=== PATIENT | male | born 1950 | race Two or more races ===

== ENCOUNTER 2024-09-15 08:20 | Outpatient (RCR) | payer MEDICARE, SELFPAY ==
--- NOTE | 2024-09-15 08:53 | CTCFLWUP_ITS ---
[facility] [address] [place], [place] [address] FOLLOW-UP NOTE Date: 09/15/2024 MR#: [id number] Name: DANYELLE HENSLEY : 1950 Dx: C90.00 Multiple myeloma not having achieved remission Identification. Patient with history multiple myeloma 2008 status post stem cell transplant October. Had been on maintenance Revlimid after bone marrow transplant and continued for about 5 years and sto pped on his own. PET scan 01/06/2024 showed multiple lytic lesions. Had palliative radiation therapy to lower T-spine and left hip. Bone marrow biopsy 05/06/2024 was suboptimal study. Patient states that he wants to see the bone marrow specialist Dr. Curry at [facility] about further man agement. I renewed his pain medications and checked the cures website. Electronically signed by: John Estrada M.D. 09/15/2024 8:51 AM
== END 2024-09-24 23:59 | disposition home or self-care (01) ==
LOC: SCTC 08:20
PROVIDERS: PCP Family Medicine; Referring Provider Family Medicine; Visit Provider Radiology Therapeutic Radiology
DX: C90.00 Multiple myeloma not having achieved remission (principal); Z94.84 Stem cells transplant status
CPT/HCPCS: 99213; G0463

== ENCOUNTER 2024-12-14 08:24 | Outpatient (RCR) | payer MEDICARE, SELFPAY ==
--- NOTE | 2024-12-14 09:23 | CTCFLWUP_ITS ---
[facility] [address] [place], [place] [address] FOLLOW-UP NOTE Date: 12/14/2024 MR#: [id number] Name: DANYELLE HENSLEY : 1950 Dx: C90.00 Multiple myeloma not having achieved remission Identification. Patient with history of multiple myeloma 2008 status post stem cell transplant October 2010 [facility] Admitted on maintenance Revlimid after bone marrow transplant continue for 5 years and stopped on his own. PET scan 01/06/2024 showed multiple lytic lesions. Had palliative radiation therapy to the lower T-spine and left hip. Bone marrow biopsy 05/06/2024 was suboptimal study. Patient states that he wanted relocation services specialist Dr. Jes Stevens about further management. Patient currently on hydrocodone 10 every 6 and Ativan 0.5 mg 1-2 nightly as needed insomnia. States that pain in his low back and left hip is generally improved. Has canceled plan to see his bone marrow specialist Dr. Curry. Also cancelled visit with local heme oncologist. Does not wish any more tests being done but does agree to have standard labs done before next visit. I will have this ordered before next visit in 3 months. Electronically signed by: John Estrada M.D. 12/14/2024 9:21 AM
== END 2024-12-22 23:59 | disposition home or self-care (01) ==
LOC: SCTC 08:24
PROVIDERS: PCP Family Medicine; Referring Provider Family Medicine; Visit Provider Radiology Therapeutic Radiology
DX: Z08 Encounter for follow-up examination after completed treatment for malignant neoplasm (principal); Z85.79 Personal history of other malignant neoplasms of lymphoid, hematopoietic and related tissues; Z94.84 Stem cells transplant status; Z92.3 Personal history of irradiation
CPT/HCPCS: 99213; G0463

== ENCOUNTER → 2025-03-09 | Outpatient (CLI) | payer MEDICARE, MEDICAID, SELFPAY ==
[2025-03-09 08:40] LABS: Basophils # (Auto) 0.0 Thou/mm3 (0.0-0.2); Basophils % (Auto) 1 % (0-2.5); Eosinophils # (Auto) 0.1 Thou/mm3 (0.0-0.5); Eosinophils % (Auto) 2 % (0-10); Hematocrit 43.8 % (41.0-53.0); Hemoglobin 15.3 g/dL (13.5-16.0); Immature Granulocytes Auto 0.01 Thou/mm3 (0.00-0.00); Lymphocytes # (Auto) 1.1 Thou/mm3 (1.0-4.8); Lymphocytes % (Auto) 22 % (10-50); Mean Corpuscular HGB Conc 34.9 g/dl (31.0-37.0); Mean Corpuscular Hemoglobin 34.1 pg (25.0-35.0); Mean Corpuscular Volume 98 fL (80-100); Monocytes # (Auto) 0.4 Thou/mm3 (0.0-0.8); Monocytes % (Auto) 8 % (0-12); Neutrophils # (Auto) 3.4 Thou/mm3 (1.8-7.7); Neutrophils % (Auto) 67 % (37-80); Nucleated Red Blood Cell # 0.00 Thou/mm3 (0.00-0.00); Nucleated Red Blood Cell % 0 /100 WBC (0); Platelet Count 137 Thou/mm3 (140-440); RDW Standard Deviation 46.1 fL (35.1-43.9); Red Blood Count 4.49 Miln/mm3 (4.50-5.90); White Blood Count 5.0 Thou/mm3 (3.8-10.6)
[2025-03-09 09:09] LABS: Alanine Aminotransferase 10 U/L (10-49); Albumin, Serum 4.1 gm/dL (3.4-4.8); Albumin/Globulin Ratio 2.0 (1.2-2.2); Alkaline Phosphatase 84 U/L (46-116); Anion Gap 6 (7-16); Aspartate Amino Transferase 15 U/L (0-34); BUN/Creatinine Ratio 7 Ratio (12-20); Bilirubin,Total 1.4 mg/dL (0.3-1.2); Blood Urea Nitrogen 11 mg/dL (9-23); Calcium 9.2 mg/dL (8.3-10.6); Calcium (Corrected) 9.2 mg/dL (8.5-10.1); Carbon Dioxide 29.0 mMol/L (20.0-31.0); Chloride 109 mMol/L (98-107); Creatinine (Component) 1.5 mg/dL (0.6-1.3); Globulin 2.1 gm/dL (2.3-3.5); Glucose 126 mg/dL (74-106); Osmolality,Calculated 288 (275-295); Potassium 4.4 mMol/L (3.4-5.1); Sodium 144 mMol/L (136-145); Total Protein 6.2 gm/dL (5.7-8.2); eGFR 49 See Note
== END | disposition home or self-care (01) ==
LOC: SCTO 06:50
PROVIDERS: PCP Family Medicine; Referring Provider Radiology Therapeutic Radiology; Visit Provider Radiology Therapeutic Radiology
DX: C90.00 Multiple myeloma not having achieved remission (principal)
CPT/HCPCS: 36415; 80053; 85025

== ENCOUNTER 2025-03-14 09:06 | Outpatient (RCR) | payer MEDICARE, MEDICAID, SELFPAY ==
--- NOTE | 2025-03-14 10:01 | CTCFLWUP_ITS ---
[facility] [address] [place], [place] [address] FOLLOW-UP NOTE Date: 03/14/2025 MR#: [id number] Name: DANYELLE HENSLEY : 1950 Dx: C90.00 Multiple myeloma not having achieved remission Identification. Patient with history of multiple myeloma 2008 status post stem cell transplant October 2010 [facility]. Maintenance Revlimid after bone marrow transplant continued for 5 years and stopped on his own PET scan 01/06/2024 showed multiple lytic lesions. Had prior palliative radiotherapy to lower T-spine and left hip. Bone marrow biopsy 05/06/2024 suboptimal study. Most recent labs 03/09/2025 WBC 5.0 hemoglobin 15.3 platelet count 1 37,000 BUN 11 creatinine 1.5 EGFR 49 Pain today in back and pelvis area approximately same as before and relieved with [place] 10 every 6 as needed. Assessment #1 multiple myeloma diagnosis 2009 stem cell transplant October 2010 [facility]. #2. Maintenance Revlimid continue to 5 years stopped on his own. #3. prior palliative radiation therapy to lower T-spine left hip. PET scan 01/06/2024 shows multiple lytic lesions. #4. bone marrow biopsy 05/06/2024 suboptimal study. Reluctant to have additional studies done. #5. Pain moderate alleviated with [place] 10 every 6 as needed. Most recent CBC CMP no significant change from prior. #6. I urged patient to see rehab aide Dr. Francis. I will see him back in 3 months for pain management. Electronically signed by: John Estrada M.D. 03/14/2025 9:58 AM
== END 2025-03-24 23:59 | disposition home or self-care (01) ==
LOC: SCTC 09:06
PROVIDERS: PCP Family Medicine; Referring Provider Radiology Therapeutic Radiology; Visit Provider Radiology Therapeutic Radiology
DX: C90.00 Multiple myeloma not having achieved remission (principal); Z94.84 Stem cells transplant status; Z92.3 Personal history of irradiation
CPT/HCPCS: 99213; G0463

== ENCOUNTER → 2025-05-11 | Outpatient (CLI) | payer MEDICARE, MEDICAID, SELFPAY ==
[2025-05-11 11:11] LABS: Basophils # (Auto) 0.0 Thou/mm3 (0.0-0.2); Eosinophils # (Auto) 0.0 Thou/mm3 (0.0-0.5); Lymphocytes % (Auto) 19 % (10-50); Monocytes # (Auto) 0.4 Thou/mm3 (0.0-0.8); Monocytes % (Auto) 7 % (0-12); Nucleated Red Blood Cell # 0.00 Thou/mm3 (0.00-0.00); Nucleated Red Blood Cell % 0 /100 WBC (0)
[2025-05-11 11:14] LABS: Basophils % (Auto) 0 % (0-2.5); Eosinophils % (Auto) 1 % (0-10); Hematocrit 44.7 % (41.0-53.0); Hemoglobin 15.5 g/dL (13.5-16.0); Immature Granulocytes Auto 0.01 Thou/mm3 (0.00-0.00); Lymphocytes # (Auto) 1.1 Thou/mm3 (1.0-4.8); Mean Corpuscular HGB Conc 34.7 g/dl (31.0-37.0); Mean Corpuscular Hemoglobin 33.7 pg (25.0-35.0); Mean Corpuscular Volume 97 fL (80-100); Neutrophils # (Auto) 4.0 Thou/mm3 (1.8-7.7); Neutrophils % (Auto) 72 % (37-80); Platelet Count 141 Thou/mm3 (140-440); RDW Standard Deviation 48.0 fL (35.1-43.9); Red Blood Count 4.60 Miln/mm3 (4.50-5.90); White Blood Count 5.6 Thou/mm3 (3.8-10.6)
[2025-05-11 11:42] LABS: Alanine Aminotransferase 8 U/L (10-49); Albumin, Serum 4.1 gm/dL (3.4-4.8); Albumin/Globulin Ratio 2.1 (1.2-2.2); Alkaline Phosphatase 83 U/L (46-116); Anion Gap 6 (7-16); Aspartate Amino Transferase 13 U/L (0-34); BUN/Creatinine Ratio 6 Ratio (12-20); Bilirubin,Total 1.5 mg/dL (0.3-1.2); Blood Urea Nitrogen 9 mg/dL (9-23); Calcium 10.0 mg/dL (8.3-10.6); Calcium (Corrected) 10.0 mg/dL (8.5-10.1); Carbon Dioxide 28.8 mMol/L (20.0-31.0); Chloride 108 mMol/L (98-107); Creatinine (Component) 1.4 mg/dL (0.6-1.3); Globulin 2.0 gm/dL (2.3-3.5); Glucose 103 mg/dL (74-106); Osmolality,Calculated 283 (275-295); Potassium 4.7 mMol/L (3.4-5.1); Sodium 143 mMol/L (136-145); Total Protein 6.1 gm/dL (5.7-8.2); eGFR 53 See Note
== END | disposition home or self-care (01) ==
PROVIDERS: PCP Family Medicine; Referring Provider Radiology Therapeutic Radiology; Visit Provider Radiology Therapeutic Radiology
DX: C90.00 Multiple myeloma not having achieved remission (principal)
CPT/HCPCS: 36415; 80053; 85025

== ENCOUNTER 2025-05-16 11:24 | Outpatient (RCR) | payer MEDICARE, MEDICAID, SELFPAY ==
[2025-05-19 22:05] LABS: Albumin 3.9 g/dL (3.8-4.8); Alpha-1-Globulin 0.2 g/dL (0.2-0.3); Alpha-2-Globulin 0.6 g/dL (0.5-0.9); Beta-1-Globulin 0.4 g/dL (0.4-0.6); Beta-2-globulin 0.2 g/dL (0.2-0.5); Gamma Globulin 0.7 g/dL (0.8-1.7)
[2025-05-20 06:35] LABS: Protein, total, serum 6.0 g/dL (6.1-8.1)
[2025-05-20 19:51] LABS: Immunoglobulin A 78 mg/dL (70-320); Immunoglobulin G 760 mg/dL (600-1540); Kappa Light Chain, Free 24.8 mg/L (3.3-19.4); Lambda Light Chain, Free 23.8 mg/L (5.7-26.3)
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
[2025-05-23 07:11] LABS: Beta 2 Microglobulin 2.68 mg/L (< OR = 2.51); Immunoglobulin M 53 mg/dL (50-300); Kappa/Lambda, Free Ratio 1.04 (0.26-1.65)
== END 2025-05-24 23:59 | disposition home or self-care (01) ==
LOC: SCTC 11:24
PROVIDERS: PCP Internal Medicine; Referring Provider Internal Medicine; Visit Provider Internal Medicine Hematology & Oncology
DX: Z08 Encounter for follow-up examination after completed treatment for malignant neoplasm (principal); Z85.79 Personal history of other malignant neoplasms of lymphoid, hematopoietic and related tissues; Z94.81 Bone marrow transplant status; R53.83 Other fatigue; Z92.3 Personal history of irradiation
CPT/HCPCS: 82232; 82784; 83521; 84155; 84165; 86334; 99212; G0463

== ENCOUNTER 2025-06-15 08:24 | Outpatient (RCR) | payer MEDICARE, MEDICAID, SELFPAY ==
--- NOTE | 2025-06-15 09:03 | CTCFLWUP_ITS ---
[facility] [address] [place], [place] [address] FOLLOW-UP NOTE Date: 06/15/2025 MR#: [id number] Name: DANYELLE HENSLEY : 1950 Dx: C90.00 Multiple myeloma not having achieved remission Identify. Patient with history of multiple myeloma 2008 status post stem cell transplant October 2010 [facility]. Received radiation therapy T-spine 2020 2023 and left hip 2021 Most recent PET 01/06/2024 suggested widespread osteolytic lesions. Had most recent bone marrow 05/06/2024 inconclusive, new labs ordered 05/16/[address] 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 Additional tests recommended. States that he has been having some trouble sleeping and would like to take occasional Ativan. Also dealing with constipation issues. Assessment. 1. History of multiple myeloma status post stem cell transplant 2010. 2. Suspected malignancy recurrence with PET 01/06/2024 showing multiple lesions with symptoms. Prior XRT to T-spine left hip. With improvement of symptoms. 3. Had spotty follow-up with heme-onc initially followed at [facility] then no longer wishing to go back due to COVID and other reasons. Currently being followed by Dr. Francis/Hailey Momin. [facility]. Recent bone marrow biopsy inconclusive other tests pending. 4. Seeing patient for pain management and I renewed his hydrocodone. Occasional trouble sleeping and I renewed his Ativan that he is taking occasionally. Told him about the concern I had about the combined effect of benzodiazepine and opioid. He has demonstrated responsible med taking previously. [facility] website checked. 5. I will see him in 3 months for pain management palliative care. Cc: Eileen Mitchell MD Electronically signed by: John Estrada M.D. 06/15/2025 9:00 AM
== END 2025-06-24 23:59 | disposition home or self-care (01) ==
LOC: SCTC 08:24
PROVIDERS: PCP Internal Medicine; Referring Provider Internal Medicine; Visit Provider Radiology Therapeutic Radiology
DX: C90.00 Multiple myeloma not having achieved remission (principal); Z94.84 Stem cells transplant status; Z92.3 Personal history of irradiation
CPT/HCPCS: 99213; G0463

== ENCOUNTER → 2025-07-26 | Outpatient (CLI) | payer MEDICARE, MEDICAID, SELFPAY ==
[2025-07-26 08:49] LABS: Flow Cytometry* See Sep Rpt
[2025-07-26 10:09] LABS: Basophils # (Auto) 0.0 Thou/mm3 (0.0-0.2); Basophils % (Auto) 0 % (0-2.5); Eosinophils # (Auto) 0.1 Thou/mm3 (0.0-0.5); Eosinophils % (Auto) 1 % (0-10); Hematocrit 45.5 % (41.0-53.0); Hemoglobin 15.7 g/dL (13.5-16.0); Immature Granulocytes Auto 0.01 Thou/mm3 (0.00-0.00); Lymphocytes # (Auto) 1.1 Thou/mm3 (1.0-4.8); Lymphocytes % (Auto) 21 % (10-50); Mean Corpuscular HGB Conc 34.5 g/dl (31.0-37.0); Mean Corpuscular Hemoglobin 34.1 pg (25.0-35.0); Mean Corpuscular Volume 99 fL (80-100); Monocytes # (Auto) 0.4 Thou/mm3 (0.0-0.8); Monocytes % (Auto) 7 % (0-12); Neutrophils # (Auto) 3.7 Thou/mm3 (1.8-7.7); Neutrophils % (Auto) 71 % (37-80); Nucleated Red Blood Cell # 0.00 Thou/mm3 (0.00-0.00); Nucleated Red Blood Cell % 0 /100 WBC (0); Platelet Count 134 Thou/mm3 (140-440); RDW Standard Deviation 47.8 fL (35.1-43.9); Red Blood Count 4.60 Miln/mm3 (4.50-5.90); White Blood Count 5.3 Thou/mm3 (3.8-10.6)
[2025-07-26 12:54] LABS: Alanine Aminotransferase 10 U/L (10-49); Albumin, Serum 4.7 gm/dL (3.4-4.8); Albumin/Globulin Ratio 2.4 (1.2-2.2); Alkaline Phosphatase 79 U/L (46-116); Anion Gap 11 (7-16); Aspartate Amino Transferase 16 U/L (0-34); BUN/Creatinine Ratio 7 Ratio (12-20); Bilirubin,Total 1.7 mg/dL (0.3-1.2); Blood Urea Nitrogen 10 mg/dL (9-23); Calcium 9.2 mg/dL (8.3-10.6); Calcium (Corrected) 9.2 mg/dL (8.5-10.1); Carbon Dioxide 27.1 mMol/L (20.0-31.0); Chloride 106 mMol/L (98-107); Creatinine (Component) 1.4 mg/dL (0.6-1.3); Globulin 2.0 gm/dL (2.3-3.5); Glucose 103 mg/dL (74-106); Osmolality,Calculated 285 (275-295); Potassium 3.4 mMol/L (3.4-5.1); Sodium 144 mMol/L (136-145); Total Protein 6.7 gm/dL (5.7-8.2); eGFR 53 See Note
[2025-08-02 08:48] LABS: Albumin 4.2 g/dL (3.8-4.8); Alpha-1-Globulin 0.2 g/dL (0.2-0.3); Alpha-2-Globulin 0.5 g/dL (0.5-0.9); Beta-1-Globulin 0.4 g/dL (0.4-0.6); Beta-2-globulin 0.2 g/dL (0.2-0.5); Gamma Globulin 0.7 g/dL (0.8-1.7); Immunoglobulin A 79 mg/dL (70-320); Immunoglobulin G 776 mg/dL (600-1540); Kappa Light Chain, Free 24.3 mg/L (3.3-19.4); Lambda Light Chain, Free 24.1 mg/L (5.7-26.3)
[2025-08-03 06:29] LABS: Beta 2 Microglobulin 2.66 mg/L (< OR = 2.51); Immunoglobulin M 60 mg/dL (50-300); Kappa/Lambda, Free Ratio 1.01 (0.26-1.65); Protein, total, serum 6.2 g/dL (6.1-8.1)
== END | disposition home or self-care (01) ==
LOC: SCTO 08:24
PROVIDERS: PCP Family Medicine; Referring Provider Internal Medicine Hematology & Oncology; Visit Provider Internal Medicine Hematology & Oncology
DX: C90.00 Multiple myeloma not having achieved remission (principal)
CPT/HCPCS: 36415; 80053; 82232; 82570; 82784; 83521; 84155; 84156; 84165; 84166; 85025; 85810; 86334; 86335

== ENCOUNTER → 2025-07-29 | Outpatient (CLI) | payer MEDICARE, MEDICAID, SELFPAY ==
[2025-07-29 11:25] LABS: Protein Total, Urine Volume 1100 mL/24hr (600-1800)
[2025-07-29 11:35] LABS: Protein Total, 24 hr Urine 286 mg/24hr (<149); Protein Total, Urine 26 mg/dL (1-14)
[2025-08-02 23:34] LABS: Albumin, 24-Hour Urine 100 %; Alpha 1 Globulin, 24Hr Urine 0 %; Alpha 2 Globulin, 24Hr Urine 0 %; Beta Globulins, 24Hr Urine 0 %; Gamma Globulins, 24Hr Urine 0 %; Protein/Creatinine Ratio 146 mg/g creat (<100); Total Volume 1100 mL
[2025-08-02 23:34] LABS: Albumin, Random Urine 100 %; Alpha 1 Globulin, Random Urine 0 %; Alpha 2 Globulin, Random Urine 0 %; Beta Globulin, Random Urine 0 %; Gamma Globulin, Random Urine 0 %; Protein,Total,Random Urine 15 mg/dL (5-25); Protein/Creatinine Ratio 141 mg/g creat (25-148)
[2025-08-03 06:32] LABS: Creatinine, Random Urine 107 mg/dL (20-320); Protein/Creatinine Ratio mg/mg 0.141 (0.025-0.148)
[2025-08-03 06:32] LABS: Creatinine, 24-Hour Urine 1.20 g/24 h (0.50-2.15); Protein, Total, 24 Hr Ur 176 (<150); Protein/Creatinine Ratio 0.146 (<0.100)
== END | disposition home or self-care (01) ==
LOC: SLDO 09:56
PROVIDERS: Referring Provider Internal Medicine Hematology & Oncology; Visit Provider Internal Medicine Hematology & Oncology
DX: C90.00 Multiple myeloma not having achieved remission (principal)
CPT/HCPCS: 82570; 84156; 84166; 86335